=== PATIENT | male | born 1960 | race Caucasian/White ===

== ENCOUNTER 2020-01-03 10:25 | Emergency (ER) | payer SELFPAY ==
[~2020-01-03] VITALS: Ht 172.7 cm; Wt 82.9 kg
[2020-01-03 10:43] VITALS: BP 153/89
--- NOTE | 2020-01-03 10:44 | PHYS DOC ---
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 Patient describes moderate pain in his left middle finger that is nonradiating worse with palpation. Patient's tetanus is not up-to-date. Review of Systems: Review of Systems: Constitutional: Denies fever or chills Eyes: Denies change in visual acuity HENT: Denies nasal congestion or sore throat Respiratory: Denies cough or shortness of breath Cardiovascular: Denies chest pain or edema GI: Denies abdominal pain, nausea, vomiting, bloody stools or diarrhea : Denies dysuria Musculoskeletal: Denies back pain or joint pain Integument: Denies rash but complains of laceration to left middle finger Neurologic: Denies headache, focal weakness or sensory changes Endocrine: Denies polyuria or polydipsia Lymphatic: Denies swollen glands Psychiatric: Denies depression or anxiety Heart Score: Risk Factors: Risk Factors: DM, Current or recent (<one month) smoker, HTN, HLP, family history of CAD, obesity. Risk Scores: Score 0 - 3: 2.5% MACE over next 6 weeks - Discharge Home Score 4 - 6: 20.3% MACE over next 6 weeks - Admit for Clinical Observation Score 7 - 10: 72.7% MACE over next 6 weeks - Early Invasive Strategies Current Medications: Current Meds: Current Medications Medications (Trade) Dose Ordered Sig/Jessica Start Time Stop Time Status Last Admin Dose Admin Bupivacaine HCl (Sensorcaine Mpf 0.5%) 30 ml 1X ONCE 01/03/20 10:45 01/03/20 10:46 UNV Tetanus/ Diphtheria Toxoids Adsorbed (Tenivac Vial) 0.5 ml ONCE ONCE 01/03/20 10:45 01/03/20 10:46 UNV Allergies: Allergies: Allergies Coded Allergies Type Severity Reaction Last Updated Verified aspirin Allergy Unknown 01/03/20 Yes Physical Exam: PE: Constitutional: Well developed, well nourished, no acute distress, non-toxic appearance. [] HENT: Normocephalic, atraumatic, bilateral external ears normal, no trismus nose normal. [] Eyes: PERRLA, EOMI, conjunctiva normal, no discharge. [] Neck: Normal range of motion, no tenderness, supple, no stridor. [] Cardiovascular:Heart rate regular rhythm, peripheral pulses are intact, cap refill is brisk Lungs & Thorax: Bilateral breath sounds clear, no respiratory distress Abdomen: soft, no tenderness, no masses, no pulsatile masses. [] Skin: Warm, dry, no erythema, no rash. [] 2 cm laceration to the distal phalanx on the volar side on her left middle finger, neurovascular intact distally Back: No tenderness, no CVA tenderness. [] Extremities: no cyanosis, no clubbing, ROM intact, no edema. [] Neurologic: Alert and oriented X 3, normal motor function, normal sensory function, no focal deficits noted. [] Psychologic: Affect normal, judgement normal, mood normal. [] Current Patient Data: Vital Signs: Vital Signs Date Time Temp Pulse Resp B/P (MAP) Pulse Ox O2 Delivery O2 Flow Rate FiO2 01/03/20 10:43 98.2 82 16 153/89 (110) 98 Room Air EKG: EKG: [] Radiology/Procedures: Radiology/Procedures: [][address] [id number] IMAGING REPORT Signed PATIENT: JUAN M MARCH ACCOUNT: [id number] : 1960 LOCATION: ER AGE: 59 SEX: M EXAM STATUS: PRE ER ORD. PHYSICIAN: JEMMA HALL MD REASON: LEFT MIDDLE FINGER distal laceration, pain with bleeding PROCEDURE: FINGER(S) LEFT Examination: FINGER(S) LEFT History: Reason: LEFT MIDDLE FINGER distal laceration, pain with bleeding / Spl. Instructions: / History: Comparison/Correlation: None Findings: 3 images of the left third digit were obtained. Overlying bandages about the third digit distal phalanx noted. This may limit evaluation for fine detail. No significant radiopaque foreign body identified although overlying bandages limit assessment. Soft tissue defect at the ulnar aspect of the third digit distal phalanx corresponding to laceration history is noted. No fracture or bone destruction. No significant degenerative change. Impression: No fracture. Electronically signed by: Karl Bolton MD (01/03/2020 11:07 AM) [id number] DICTATED AND SIGNED BY: KARL BOLTON MD DATE: 01/03/20 8060 CC: JEMMA HALL MD; PCP,NO ~ Course & Med Decision Making: Course & Med Decision Making Pertinent Labs and Imaging studies reviewed. (See chart for details) [] Dragon Disclaimer: Dragon Disclaimer: This electronic medical record was generated, in whole or in part, using a voice recognition dictation system. - Procedure note: Clinical indication: Left middle finger laceration After obtaining verbal consent a digital block was performed on the left middle finger using a dorsal approach and 2 needle sticks with a 27-gauge needle. A total of 3 cc of 0.5% bupivacaine was injected with good anesthesia. The wound was then copiously irrigated with normal saline. The laceration which measured 2 cm was then repaired with 4 4.0 Ethilon sutures. Simple interrupted sutures were used. Good cosmesis was obtained. No complications. Patient tolerated well Departure Departure: Impression: Primary Impression: Laceration of left middle finger Disposition: 01 HOME/RESIDENCE PRIOR TO ADM Condition: STABLE Referrals: PCP,NO (PCP) Follow-up in the ER or with your primary doctor in 10 days for suture removal Patient Instructions: Laceration Care, Adult Additional Instructions: EMERGENCY DEPARTMENT GENERAL DISCHARGE INSTRUCTIONS THANK YOU for coming to [facility] Emergency Department (ED) today and trusting us with your care. We trust that you had a positive experience in our Emergency Department. If you wish to speak to the department Management you can contact the emergency department at YOUR FOLLOW UP INSTRUCTIONS ARE FOLLOWS: Do you have a private doctor? If you do not have a private doctor, please ask for a resource list of physicians or clinics that may be able to assist you with follow up care. The Emergency Physician has interpreted your x-rays. The X-ray specialist will also review them. If there is a change in the findings you will be notified in 48 hours when at all possible. A lab test or lab culture may have been done, your results will be reviewed and you will be notified if you need a change in treatment. ADDITIONAL INSTRUCTIONS AND INFORMATION Your care today has been supervised by a physician who is specially trained in emergency care. Many problems require more than one evaluation for a complete diagnosis and treatment. We recommend that you schedule your follow up appointment as recommended to ensure complete treatment of your illness or injury. If you are unable to obtain follow up care and continue to have a problem, or if your condition worsens we recommend that you return to the ED. We are not able to safely determine your condition over the phone nor are we able to give sound medical advice over the phone. For these safety reasons, if you call for medical advice we will ask you to come to the ED for further evaluation If you have any questions regarding these discharge instructions please call the ED at . SAFETY INFORMATION In the interest of safety, wellness, and injury prevention; we encourage you to wear your seatbelt, if you smoke; quit smoking, and we encourage your family to use protective helmet for bicycling and other sporting events that present an increased risk for head injury. IF YOUR SYMPTOMS WORSEN OR NEW SYMPTOMS DEVELOP, OR YOU HAVE CONCERNS ABOUT YOUR CONDITION; OR IF YOUR CONDITION WORSENS WHILE YOU ARE WAITING FOR YOUR FOLLOW UP APPOINTMENT; EITHER CONTACT YOUR PRIMARY CARE DOCTOR, THE PHYSICIAN WHOSE NAME AND NUMBER YOU WERE GIVEN, OR RETURN TO THE ED IMMEDIATELY. You may wash the wound twice a day with soap and water but do not immerse in water. The stitches need to come out in 10 days. He can follow-up with your primary doctor or return here for suture removal. Return if redness warmth or drainage comes from the wound. Justification of Admission: Justification of Admission: Justification of Admission Dx: N/A JEMMA HALL MD Jan 03, 2020 10:44
[2020-01-03] MEDS ORDERED: TETANUS AND DIPHTHERIA TOX/PF 0.5 ML VIAL. VAX IM ONE (10:45)
[2020-01-03] MEDS ORDERED: BUPIVACAINE MPF 0.5% 30 ML VIAL. SQ ONE (10:45)
--- NOTE | 2020-01-03 11:09 | RAD ---
Examination: FINGER(S) LEFT History: Reason: LEFT MIDDLE FINGER distal laceration, pain with bleeding / Spl. Instructions: / History: Comparison/Correlation: None Findings: 3 images of the left third digit were obtained. Overlying bandages about the third digit distal phalanx noted. This may limit evaluation for fine detail. No significant radiopaque foreign body identified although overlying bandages limit assessment. Soft tissue defect at the ulnar aspect of the third digit distal phalanx corresponding to laceration history is noted. No fracture or bone destruction. No significant degenerative change. Impression: No fracture. Electronically signed by: Karl Acuña MD (01/03/2020 11:07 AM) [id number]
[2020-01-03] MEDS ORDERED: DIPH,PERTUSS(ACELL),TET VAC/PF 0.5 ML SYRINGE. VAX IM ONE (11:21)
== END 2020-01-03 11:34 | disposition home or self-care (01) ==
LOC: ER 10:25
DX: S61.213A Laceration without foreign body of left middle finger without damage to nail, initial encounter (principal); F17.210 Nicotine dependence, cigarettes, uncomplicated; Z88.6 Allergy status to analgesic agent; W26.8XXA Contact with other sharp object(s), not elsewhere classified, initial encounter; Y93.89 Activity, other specified; Y92.89 Other specified places as the place of occurrence of the external cause; Y99.8 Other external cause status
CPT/HCPCS: 12001; 73140; 90471; 90714; 99283